=== PATIENT | female | born 1955 | race Caucasian/White ===

== ENCOUNTER 2017-02-10 12:43 | Emergency (ER) | payer MEDICAID ==
[~2017-02-10] VITALS: Ht 157.5 cm; Wt 93.9 kg
[~2017-02-10 12:43] MED LIST: ALBU2.5V5 IH; ALBU8.5H6 IH; CELE50CA PO; CYCL5TAB PO; DULO20CA PO; ESOM20CA PO; ESTR1TAB PO; HYDR-2666 PO; HYDR200T5 PO; SERT25TA PO
[2017-02-10 12:45] VITALS: BP 143/79
[2017-02-10] MEDS ORDERED: KETOROLAC TROMETHAMINE 60 MG/2 ML SYRINGE. IM ONE (13:30)
[2017-02-10] MEDS ORDERED: HYDROCODONE/APAP 5/325MG TABLET. PO ONE (13:30)
[2017-02-10] MEDS ORDERED: CYCLOBENZAPRINE 10 MG TABLET. PO ONE (13:30)
--- NOTE | 2017-02-10 14:00 | RAD ---
Pelvis with right hip, 3 views, 02/10/2017: History: Fall, pain The bony structures are demineralized. No acute fracture or dislocation is identified. The hip joints are well-maintained with only mild marginal spurring. IMPRESSION: No acute bony abnormality is detected.
--- NOTE | 2017-02-10 14:05 | RAD ---
Lumbar spine, 3 views, 02/10/2017: History: Fall, pain There is a minimal lumbar scoliosis. There is a mild compression deformity involving the superior endplate at L2. This was not visible on a lateral chest radiograph from 11/18/2013. A fracture line is visible anteriorly. The fracture is probably recent. The other lumbar vertebral heights are well-maintained. There are mild scattered marginal spurs. There is mild disc space narrowing at L4-5. There are moderate degenerative changes involving the facet joints in the lower lumbar spine with a grade 1 spondylolisthesis at L4-5. There is a moderate amount stool throughout the colon. IMPRESSION: 1. Mild L2 vertebral compression deformity which is probably recent. 2. Moderate facet joint arthropathy with an associated grade 1 spondylolisthesis at L4-5.
[2017-02-10] MEDS ORDERED: CYCL10TA2 PO (14:28)
--- NOTE | 2017-02-10 14:28 | PHYS DOC ---
Past Medical History Past Medical History: Anemia, Anxiety, Arthritis, Bronchitis, CHF, Depression, DVT Additional Past Medical Histor: lupus,fibromyalgia Past Surgical History: Knee Replacement Additional Past Surgical Histo: left shoulder, carpel tunnel Alcohol Use: None Drug Use: None Adult General Chief Complaint Chief Complaint: BACK INJURY HPI HPI Patient is a 61 year old female with history of anemia anxiety bronchitis who presents today with mild bilateral lower back pain and right hip pain after tripping on her wheelchair and falling down on her buttocks. Patient denies any loss of consciousness. She is up and ambulating in the ED. Review of Systems Review of Systems Constitutional: Denies fever or chills [] Eyes: Denies change in visual acuity, redness, or eye pain [] HENT: Denies nasal congestion or sore throat [] Respiratory: Denies cough or shortness of breath [] Cardiovascular: No additional information not addressed in HPI [] GI: Denies abdominal pain, nausea, vomiting, bloody stools or diarrhea [] : Denies dysuria or hematuria [] Musculoskeletal: Low back pain and right hip pain Integument: Denies rash or skin lesions [] Neurologic: Denies headache, focal weakness or sensory changes [] Endocrine: Denies polyuria or polydipsia [] Current Medications Current Medications Current Medications Medications (Trade) Dose Ordered Sig/Milena Start Time Stop Time Status Last Admin Dose Admin Acetaminophen/ Hydrocodone Bitart (Lortab 5/325) 1 tab 1X ONCE 02/10/17 13:30 02/10/17 13:30 DC Cyclobenzaprine HCl (Flexeril) 10 mg 1X ONCE 02/10/17 13:30 02/10/17 13:30 DC Ketorolac Tromethamine (Toradol Im) 60 mg 1X ONCE 02/10/17 13:30 02/10/17 13:32 DC 02/10/17 13:36 60 MG Allergies Allergies Allergies Coded Allergies Type Severity Reaction Last Updated Verified Sulfa (Sulfonamide Antibiotics) Allergy Unknown Anaphylaxis 10/07/14 Yes Physical Exam Physical Exam Constitutional: Well developed, well nourished, no acute distress, non-toxic appearance. [] HENT: Normocephalic, atraumatic, bilateral external ears normal, oropharynx moist, no oral exudates, nose normal. [] Eyes: PERRLA, EOMI, conjunctiva normal, no discharge. [] Neck: Normal range of motion, no tenderness, supple, no stridor. [] Cardiovascular:Heart rate regular rhythm, no murmur [] Lungs & Thorax: Bilateral breath sounds clear to auscultation [] Abdomen: Bowel sounds normal, soft, no tenderness, no masses, no pulsatile masses. [] Skin: Warm, dry, no erythema, no rash. [] Back: Overweight patient. Diffuse paraspinal muscle tenderness to bilateral low lumbar region, no midline tenderness, no CVA tenderness. [] Extremities: Hip exam is difficult due to weight. Tenderness on palpation of the right lateral hip. +2 right pedal pulse. Cap refill less than 2 seconds the right lower extremity. Neurologic: Alert and oriented X 3, normal motor function, normal sensory function, no focal deficits noted. [] Psychologic: Affect normal, judgement normal, mood normal. [] Current Patient Data Vital Signs Vital Signs Date Time Temp Pulse Resp B/P Pulse Ox O2 Delivery O2 Flow Rate FiO2 02/10/17 12:45 97.6 53 18 98 Room Air 97.6 EKG EKG [] Radiology/Procedures Radiology/Procedures [] Course & Med Decision Making Course & Med Decision Making Pertinent Labs and Imaging studies reviewed. (See chart for details) Patient is in the ED with low back pain and right hip pain after falling. X- rays of the lumbar spine and right hip with pelvic are negative for any acute findings. Discharged with Flexeril. Heat recommended to the region. Follow-up with PCP in one week. Provided return precautions and discharged in stable condition. Dragon Disclaimer Dragon Disclaimer This electronic medical record was generated, in whole or in part, using a voice recognition dictation system. Departure Departure Impression: Primary Impression: Lumbar contusion Additional Impressions: Contusion, hip Fall from standing Disposition: HOME, SELF-CARE Condition: STABLE Referrals: RAMIRO ROACH (PCP) Follow-up with your own doctor in 1-2 weeks Patient Instructions: Back Pain, Adult Additional Instructions: You were seen for hip and back pain after falling. You probably have contusions to the area. Your x-rays are negative for any acute findings. Apply heat to the affected areas. Follow-up with your own doctor in 1-2 weeks. Come back to the ED at any point symptoms worsen. Scripts Cyclobenzaprine Hcl 10 Mg Tablet1 Tab PO TID #30 TAB Prov:ADALGISA OLMSTEAD MARVEL 02/10/17 Problem Qualifiers Primary Impression: Lumbar contusion Encounter type: initial encounter Qualified Code: S30.0XXA - Contusion of lower back and pelvis, initial encounter Additional Impressions: Contusion, hip Encounter type: initial encounter Laterality: right Qualified Code: S70.01XA - Contusion of right hip, initial encounter Fall from standing Encounter type: initial encounter Qualified Code: W19.XXXA - Unspecified fall, initial encounter JOJOADALGISA RYAN MARVEL Feb 10, 2017 14:28
== END 2017-02-10 14:32 | disposition home or self-care (01) ==
LOC: ER 12:43
DX: S30.0XXA Contusion of lower back and pelvis, initial encounter (principal); S70.01XA Contusion of right hip, initial encounter; F32.9 Major depressive disorder, single episode, unspecified; F41.9 Anxiety disorder, unspecified; I11.0 Hypertensive heart disease with heart failure; I50.9 Heart failure, unspecified; M79.7 Fibromyalgia; M19.90 Unspecified osteoarthritis, unspecified site; Z86.718 Personal history of other venous thrombosis and embolism; Z96.659 Presence of unspecified artificial knee joint; Z88.2 Allergy status to sulfonamides; W05.0XXA Fall from non-moving wheelchair, initial encounter; Y93.89 Activity, other specified; Y92.89 Other specified places as the place of occurrence of the external cause; Y99.8 Other external cause status
CPT/HCPCS: 72100; 73502; 96372; 99284; J1885

== ENCOUNTER 2017-02-16 14:30 | Emergency (ER) | payer MEDICAID ==
[~2017-02-16] VITALS: Ht 157.5 cm; Wt 97.1 kg
[~2017-02-16 14:30] MED LIST changes: +CYCL10TA2 PO
[2017-02-16 14:53] VITALS: BP 163/70
[2017-02-16] MEDS ORDERED: ONDANSETRON ODT 4 MG TAB.RAPDIS PO ONE (15:45)
[2017-02-16] MEDS ORDERED: MORPHINE SULFATE 10 MG/ML VIAL. IM ONE (15:45)
[2017-02-16] MEDS ORDERED: LIDOCAINE 1%/EPI 1:100,000 20 ML VIAL. INJ ONE (15:45)
--- NOTE | 2017-02-16 15:47 | PHYS DOC ---
Past Medical History Past Medical History: Anemia, Anxiety, Arthritis, Bronchitis, CHF, Depression, DVT Additional Past Medical Histor: lupus,fibromyalgia Past Surgical History: Knee Replacement Additional Past Surgical Histo: left shoulder, carpel tunnel Additional Information: nonsmoker Alcohol Use: None Drug Use: None Adult General Chief Complaint Chief Complaint: MECHANICAL FALL HPI HPI Patient is a 61 year old female who presents with left knee laceration after mechanical fall at 1400 today. 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 She landed on the left knee and hit the left elbow as well. She denies hitting her head or loss of consciousness. She denies weakness, numbness, or pain in her neck. She has been able to bear weight but has not tried ambulating. She stood to transfer into an ambulance for transport to the emergency department. Her tetanus immunization is up to date. Her PCP is Dr. Zoraida Roach. Review of Systems Review of Systems Constitutional: Denies fever or chills. [] Eyes: Denies change in visual acuity, redness, or eye pain. [] Musculoskeletal: Denies back pain. Reports left knee and left elbow pain. Integument: Denies rash or skin lesions. Reports left knee laceration. Neurologic: Denies headache, focal weakness or sensory changes. Denies loss of consciousness. All systems reviewed and negative unless otherwise stated in the HPI. Current Medications Current Medications Current Medications Medications (Trade) Dose Ordered Sig/Milena Start Time Stop Time Status Last Admin Dose Admin Lidocaine/ Epinephrine (Xylocaine 1%-Epi 1:100,000) 20 ml 1X ONCE 02/16/17 15:45 02/16/17 15:46 DC 02/16/17 15:59 20 ML Morphine Sulfate 5 mg 1X ONCE 02/16/17 15:45 02/16/17 15:46 DC 02/16/17 15:59 5 MG Ondansetron HCl (Zofran Odt) 4 mg 1X ONCE 02/16/17 15:45 02/16/17 15:46 DC 02/16/17 15:58 4 MG Allergies Allergies Allergies Coded Allergies Type Severity Reaction Last Updated Verified Sulfa (Sulfonamide Antibiotics) Allergy Unknown Anaphylaxis 10/07/14 Yes Physical Exam Physical Exam Constitutional: Well developed, well nourished, no acute distress, non-toxic appearance. [] HENT: Normocephalic, atraumatic, oropharynx moist. [] Eyes: PERRLA, EOMI, conjunctiva normal, no discharge. [] Neck: Normal range of motion, no tenderness, supple, no stridor. [] Skin: Warm, dry, no erythema, no rash. There is a 4cm laceration across the left knee without active bleeding. There is ecchymosis of the left knee. There is no ecchymosis, abrasion, or laceration of the left elbow. Extremities: Left knee diffuse tenderness, ROM decreased due to pain, moderate edema. 2+ pedal pulses. Less than 2 second capillary refill distally. Light touch sensation intact distally. There is no tenderness of the hip, thigh, calf , ankle, or foot. Extremities 2: Left elbow medial tenderness, ROM intact, no edema. 2+ radial and ulnar pulses. Less than 2 second capillary refill in the fingers. Light touch sensation intact distally. There is no tenderness of the shoulder, arm, wrist, forearm, or hand. Neurologic: Alert and oriented X 3, normal motor function, normal sensory function, no focal deficits noted. [] Psychologic: Affect normal, judgement normal, mood normal. [] Current Patient Data Vital Signs Vital Signs Date Time Temp Pulse Resp B/P Pulse Ox O2 Delivery O2 Flow Rate FiO2 02/16/17 15:59 Room Air 02/16/17 14:53 98.2 56 16 163/70 98.2 EKG EKG [] Radiology/Procedures Radiology/Procedures REASON: trip & fall on knee & elbow PROCEDURE: KNEE LEFT 3V Indication fall, pain. AP oblique and lateral views of the left knee were obtained. There is some mild degenerative change seen involving the knee. There is slight medial joint space compartment narrowing and more advanced patellofemoral narrowing. Abrasion and/or puncture wound associated with the soft tissues is suggested. Air is suggested at the level of the knee just medial to the medial joint space compartment and medial to the proximal tibia REASON: trip & fall on knee & elbow PROCEDURE: ELBOW LEFT 3V Indication fall. Pain. AP oblique and lateral views of the left elbow were obtained. No bony abnormality is seen. Significant joint fluid is not suggested Course & Med Decision Making Course & Med Decision Making Pertinent Labs and Imaging studies reviewed. (See chart for details) Patient presents with a 4 cm superficial laceration to the left knee inferior to the patella and medial to the patellar tendon. The wound was anesthetized with 1% lidocaine with epinephrine. The wound was explored for foreign bodies and none were identified. There was no tendon laceration. The bursa appeared to be intact. The wound was cleaned using chlorhexidine scrub and copiously irrigated using normal saline. Wound edges were well approximated using 7 simple interrupted sutures using 4-0 nylon. The patient tolerated the procedure well and bleeding was controlled. A sterile dressing was applied. X-ray does not show any acute fracture or dislocation. There is a suggestion of air within the joint. This was discussed with Dr. Nicholson. Orthopedics was consulted. Dr. Flynn recommends a saline load test. This involves injecting approximately 100 mL of saline into the joint space. If there is leakage of the fluid through the laceration, this confirms involvement of the joint with the laceration. Saline load test was performed by Dr. Nicholson. Please see procedure note. There was no leakage of fluid. The injected saline was unable to be aspirated out of the joint after negative saline load test. Nonstick dressing was applied to the laceration with Kerlix and then an Jose wrap. I contacted Dr. Flynn's PA. She states that as long as the patient tolerated the procedure well and is not in severe pain, it is okay to discharge her home. She recommends an Jose wrap to apply pressure and antibiotics. They are happy to see the patient in their office as an outpatient. The patient prefers to see her orthopedist at [facility]. The patient is discharged home with prescriptions for Keflex and Percocet. She is instructed to follow closely with orthopedics, either with her orthopedist at [facility] or with Dr. Flynn. She has already called her orthopedist to schedule an appointment in the morning. Return precautions were discussed. Patient verbalizes understanding and agrees with plan. Dragon Disclaimer Dragon Disclaimer This electronic medical record was generated, in whole or in part, using a voice recognition dictation system. Departure Departure Impression: Primary Impression: Knee laceration Additional Impression: Elbow contusion Disposition: HOME, SELF-CARE Condition: IMPROVED Referrals: ZORAIDA [facility] (PCP) HOUSTON FLYNN MD Patient Instructions: Elbow Contusion, [id number], Knee Wraps (Elastic Bandage) and RICE, Sutured Wound Care, [id number] Additional Instructions: Your x-rays did not show any broken bones or dislocations. There was some air seen, however after injection of saline into the knee joint, it does not appear that the joint space was compromised by the knee laceration. Please keep the wound covered with antibiotic ointment and a bandage. Wear an Jose wrap over the bandage to help with swelling. Please complete all of the prescribed antibiotics. Please take the prescribed pain medication as directed. Do not drive or operate heavy machinery while taking pain medication. Please follow-up with the orthopedic doctor listed below or the orthopedic doctor of your choice within the next 1-2 days. Return to the emergency department if you have redness, warmth, yellow/green drainage from the wound, or other new or concerning symptoms. Scripts Oxycodone/Apap 5-325 (Percocet 5-325 Mg Tablet)1 Each Tablet1 Tab PO PRN Q6HRS PRN PAIN #20 TAB Prov:ANIYA MORRISSEY 02/16/17 Cephalexin (Keflex)500 Mg Capsule1 Cap PO BID #14 CAP Prov:ANIYA MORRISSEY 02/16/17 Arthrocentesis Indication: saline load test for joint involvement in laceration Consent: Consent given by patient. Procedure: Procedure was performed by Dr. Nicholson. The left knee was positioned appropriately and the landmarks were identified. Local anesthesia was 1% lidocaine with epinephrine. The area was then prepped and draped in the usual sterile fashion. A needle was then introduced into the joint space with 100cc of sterile saline injected. There was minimal leakage of fluid from the wound, thus confirming that there is no joint involvement of the laceration. Attempt to aspirate the injected fluid back out of the joint was unsuccessful. A sterile dressing was then applied to the site. An Jose wrap was the applied over the dressing to apply pressure. The patient tolerated the procedure well. Complications: unable to aspirate saline after injection. Problem Qualifiers Primary Impression: Knee laceration Encounter type: initial encounter Laterality: left Qualified Code: S81.012A - Laceration without foreign body, left knee, initial encounter Additional Impression: Elbow contusion Encounter type: initial encounter Laterality: left Qualified Code: S50.02XA - Contusion of left elbow, initial encounter ANIYA MORRISSEY Feb 16, 2017 15:47
--- NOTE | 2017-02-16 16:05 | RAD ---
Indication fall. Pain. AP oblique and lateral views of the left elbow were obtained. No bony abnormality is seen. Significant joint fluid is not suggested
--- NOTE | 2017-02-16 16:07 | RAD ---
Indication fall, pain. AP oblique and lateral views of the left knee were obtained. There is some mild degenerative change seen involving the knee. There is slight medial joint space compartment narrowing and more advanced patellofemoral narrowing. Abrasion and/or puncture wound associated with the soft tissues is suggested. Air is suggested at the level of the knee just medial to the medial joint space compartment and medial to the proximal tibia
[2017-02-16] MEDS ORDERED: CEPH-264 PO (18:42)
[2017-02-16] MEDS ORDERED: OXYC-323 PO (18:42)
== END 2017-02-16 18:46 | disposition home or self-care (01) ==
LOC: ER 14:30
DX: S81.012A Laceration without foreign body, left knee, initial encounter (principal); S50.02XA Contusion of left elbow, initial encounter; I11.0 Hypertensive heart disease with heart failure; I50.9 Heart failure, unspecified; F41.9 Anxiety disorder, unspecified; F32.9 Major depressive disorder, single episode, unspecified; M79.7 Fibromyalgia; M19.90 Unspecified osteoarthritis, unspecified site; Z88.2 Allergy status to sulfonamides; Z96.659 Presence of unspecified artificial knee joint; Z86.718 Personal history of other venous thrombosis and embolism; W01.0XXA Fall on same level from slipping, tripping and stumbling without subsequent striking against object, initial encounter; Y93.89 Activity, other specified; Y92.89 Other specified places as the place of occurrence of the external cause; Y99.8 Other external cause status
CPT/HCPCS: 12002; 73080; 73562; 96372; 99284; J2270; J3490; Q0162

== ENCOUNTER 2019-11-12 14:58 | Emergency (ER) | payer MEDICARE, OTHER ==
[~2019-11-12] VITALS: Ht 157.5 cm; Wt 105.2 kg
[~2019-11-12 14:58] MED LIST changes: +CEPH-264 PO; -HYDR-2666 PO; +HYDR-2761 PO; +OXYC1TAB15 PO
[2019-11-12] MEDS: methylPREDNISolone SOD SUCC PF 125 MG/2 ML VIAL. IV ONE (15:30)
--- NOTE | 2019-11-12 15:32 | EKG ---
[facility] [address] [place] [address] Test Date: 2019-11-12 Test Time: 15:12:58 Pat Name: CALVIN SU Department: Room: Gender: F [employer]: : 1955 Requested By: CAROLE CASTRO Order Number: [id number] Reading MD: Measurements Intervals [place] Rate: 63 P: WI: QRS: 19 QRSD: 106 T: 14 QT: 468 QTc: 482 Interpretive Statements ATRIAL FLUTTER QRS(T) CONTOUR ABNORMALITY CONSISTENT WITH INFERIOR INFARCT PROBABLY OLD ABNORMAL ECG RI6.01 No previous ECG available for comparison
--- NOTE | 2019-11-12 15:51 | RAD ---
PORTABLE CHEST 1V Clinical indications: Shortness of breath COMPARISON: January 08, 2016. Findings: Decreased inspiration is evident. No acute lung infiltrate or pleural effusion or pulmonary edema or lung mass or pneumothorax is seen. The heart size is enlarged but stable. The pulmonary vasculature, mediastinum and both tammy are unremarkable. Impression: Mild stable cardiomegaly. Decreased inspiration which may be related to the patient's larger body habitus. No acute lung infiltrate. Electronically signed by: Steven Lin MD (11/12/2019 3:48 PM) [facility]
[2019-11-12] MEDS: IPRATRPIUM/ALBUTEROL 0.5/2.5MG 3 ML NEBU. NEB ONE (16:00)
--- NOTE | 2019-11-12 16:00 | PHYS DOC ---
Past Medical History Past Medical History: Anemia, Anxiety, Arthritis, Bronchitis, CHF, Depression, DVT Additional Past Medical Histor: lupus,fibromyalgia Past Surgical History: Knee Replacement Additional Past Surgical Histo: left shoulder, carpel tunnel Alcohol Use: None Drug Use: None Adult General Chief Complaint Chief Complaint: SHORTNESS OF BREATH [facility] HPI Patient is a 63 year old female patient with history of anxiety, arthritis, CHF, bronchitis, COPD, fibromyalgia and lupus who presents with complaining of shortness of breath. Patient complaining of exertional shortness of breath for the last 3-4 days with productive cough and yellow sputum and chills associated with nausea and few episodes of diarrhea without fever, chest pain, sick contact, vomiting, urinary symptom. Patient states she took a home inhalers without improvement of her condition and decided to come to hospital because she had episodes of previous episodes of shortness of breath and hospitalization. Patient had O2 sat of 97% at room air at arrival to ER. Review of Systems Review of Systems Constitutional: Denies fever or chills [] Eyes: Denies change in visual acuity, redness, or eye pain [] HENT: Denies nasal congestion or sore throat [] Respiratory: Reports cough and shortness of breath Cardiovascular: No additional information not addressed in HPI [] GI: Denies abdominal pain,vomiting, bloody stools , reports nausea and diarrhea [] : Denies dysuria or hematuria [] Musculoskeletal: Denies back pain or joint pain [] Integument: Denies rash or skin lesions [] Neurologic: Denies headache, focal weakness or sensory changes [] Endocrine: Denies polyuria or polydipsia [] All other systems were reviewed and found to be within normal limits, except as documented in this note. Current Medications Current Medications Current Medications Medications (Trade) Dose Ordered Sig/Milena Start Time Stop Time Status Last Admin Dose Admin Albuterol/ Ipratropium (Duoneb) 3 ml 1X ONCE 11/12/19 15:30 11/12/19 15:33 DC 11/12/19 16:00 3 ML Methylprednisolone Sodium Succinate (SOLU-Medrol 125MG VIAL) 125 mg 1X ONCE 11/12/19 15:30 11/12/19 15:33 DC 11/12/19 15:30 125 MG Allergies Allergies Allergies Coded Allergies Type Severity Reaction Last Updated Verified Sulfa (Sulfonamide Antibiotics) Allergy Unknown Anaphylaxis 10/07/14 Yes Physical Exam Physical Exam Constitutional: Well developed, well nourished, mild distress, non-toxic appearance, morbidly obese. [] HENT: Normocephalic, atraumatic, bilateral external ears normal, oropharynx moist, no oral exudates, nose normal. [] Eyes: PERRLA, EOMI, conjunctiva normal, no discharge. [] Neck: Normal range of motion, no tenderness, supple, no stridor. [] Cardiovascular:Heart rate regular rhythm, no murmur [] Lungs & Thorax: Bilateral breath sounds clear to auscultation [] Abdomen: Bowel sounds normal, soft, no tenderness, no masses, no pulsatile masses. [] Skin: Warm, dry, no erythema, no rash. [] Back: No tenderness, no CVA tenderness. [] Extremities: No tenderness, no cyanosis, no clubbing, ROM intact, no edema. [] Neurologic: Alert and oriented X 3, normal motor function, normal sensory function, no focal deficits noted. [] Psychologic: Affect normal, judgement normal, mood normal. [] Current Patient Data Vital Signs Vital Signs Date Time Temp Pulse Resp B/P (MAP) Pulse Ox O2 Delivery O2 Flow Rate FiO2 11/12/19 17:30 60 18 110/53 (72) 97 Room Air 11/12/19 15:09 98.4 98.4 Lab Values Laboratory Tests Test 11/12/19 15:21 11/12/19 16:00 Influenza Type A Antigen Negative (NEGATIVE) Influenza Type B Antigen Negative (NEGATIVE) White Blood Count 5.7 x10^3/uL (4.0-11.0) Red Blood Count 3.76 x10^6/uL (3.50-5.40) Hemoglobin 11.0 g/dL (12.0-15.5) L Hematocrit 33.7 % (36.0-47.0) L Mean Corpuscular Volume 90 fL (79-100) Mean Corpuscular Hemoglobin 29 pg (25-35) Mean Corpuscular Hemoglobin Concent 33 g/dL (31-37) Red Cell Distribution Width 15.1 % (11.5-14.5) H Platelet Count 163 x10^3/uL (140-400) Neutrophils (%) (Auto) 64 % (31-73) Lymphocytes (%) (Auto) 23 % (24-48) L Monocytes (%) (Auto) 9 % (0-9) Eosinophils (%) (Auto) 4 % (0-3) H Basophils (%) (Auto) 1 % (0-3) Neutrophils # (Auto) 3.7 x10^3/uL (1.8-7.7) Lymphocytes # (Auto) 1.3 x10^3/uL (1.0-4.8) Monocytes # (Auto) 0.5 x10^3/uL (0.0-1.1) Eosinophils # (Auto) 0.2 x10^3/uL (0.0-0.7) Basophils # (Auto) 0.0 x10^3/uL (0.0-0.2) D-Dimer (Raven) 0.56 ug/mlFEU (0.00-0.50) H Sodium Level 144 mmol/L (136-145) Potassium Level 4.3 mmol/L (3.5-5.1) Chloride Level 105 mmol/L (98-107) Carbon Dioxide Level 30 mmol/L (21-32) Anion Gap 9 (6-14) Blood Urea Nitrogen 25 mg/dL (7-20) H Creatinine 1.8 mg/dL (0.6-1.0) H Estimated GFR (Cockcroft-Gault) 28.4 BUN/Creatinine Ratio 14 (6-20) Glucose Level 89 mg/dL (70-99) Lactic Acid Level 1.1 mmol/L (0.4-2.0) Calcium Level 8.9 mg/dL (8.5-10.1) Total Bilirubin 0.5 mg/dL (0.2-1.0) Aspartate Amino Transferase (AST) 22 U/L (15-37) Alanine Aminotransferase (ALT) 19 U/L (14-59) Alkaline Phosphatase 164 U/L (46-116) H Creatine Kinase 147 U/L (26-192) Troponin I Quantitative 0.073 ng/mL (0.000-0.055) ZD-Xnb-N-Type Natriuretic Peptide 2433 pg/mL (0-124) H Total Protein 6.9 g/dL (6.4-8.2) Albumin 3.6 g/dL (3.4-5.0) Albumin/Globulin Ratio 1.1 (1.0-1.7) Laboratory Tests 11/12/19 16:00 Laboratory Tests 11/12/19 16:00 EKG EKG EKG interpreted by me. EKG at 1512 showed sinus rhythm at rate of 63, poor R- wave progress in anteroseptal leads, no acute ST and T-wave elevation. Radiology/Procedures Radiology/Procedures [][facility] [address] [place] [address] IMAGING REPORT Signed PATIENT: CALVIN SU LACCOUNT: [id number] : 1955 LOCATION: ER AGE: 63 SEX: F EXAM STATUS: PRE ER ORD. PHYSICIAN: CAROLE CASTRO MD REASON: shortness of breath PROCEDURE: PORTABLE CHEST 1V PORTABLE CHEST 1V Clinical indications: Shortness of breath COMPARISON: January 08, 2016. Findings: Decreased inspiration is evident. No acute lung infiltrate or pleural effusion or pulmonary edema or lung mass or pneumothorax is seen. The heart size is enlarged but stable. The pulmonary vasculature, mediastinum and both tammy are unremarkable. Impression: Mild stable cardiomegaly. Decreased inspiration which may be related to the patient's larger body habitus. No acute lung infiltrate. Electronically signed by: Oswaldo Lin MD (11/12/2019 3:48 PM) [facility] DICTATED and SIGNED BY: OSWALDO LIN MD DATE: 11/12/19 1548 Course & Med Decision Making Course & Med Decision Making Pertinent Labs and Imaging studies reviewed. (See chart for details) Evaluation of patient is a 62-year-old female patient with complaining of shortness of breath and cough. Patient had stable vital signs of complaining of chest pain. Patient had mild elevation of troponin and BNP. Patient refuses hospitalization for more evaluation of elevation of troponin and signed AMA. Sofya Disclaimer Dragon Disclaimer This electronic medical record was generated, in whole or in part, using a voice recognition dictation system. Departure Departure Impression: Primary Impression: COPD exacerbation Additional Impressions: Elevated troponin Elevated brain natriuretic peptide (BNP) level Noncompliance by refusing service Chronic anemia Renal insufficiency Disposition: 07 AGAINST MEDICAL ADVICE (at 1726) Condition: IMPROVED Referrals: RAMIRO ROACH (PCP) Patient Instructions: Chronic Obstructive Pulmonary Disease Exacerbation, Heart Failure Additional Instructions: Continue her home medication Follow-up with your primary care physician in 2-3 days Return to ER if not getting better Scripts Azithromycin (ZITHROMAX) 250 Mg Tablet 250 MG PO as directed for ANTI-BIOTIC, #6 TAB 0 Refills Take 2 PO x 1 days Then take 1 PO q 24 hour for the next 4 days Prov: CAROLE CASTRO MD 11/12/19 Benzonatate (TESSALON PERLE) 100 Mg Capsule 1 CAP PO TID for cough, #21 CAP Prov: CAROLE CASTRO MD 11/12/19 Methylprednisolone (MEDROL) 4 Mg Tab.ds.pk 1 PKG PO UD for inflammation, #1 PKG Prov: CAROLE CASTRO MD 11/12/19 Problem Qualifiers CAROLE CASTRO MD Nov 12, 2019 16:00
[2019-11-12 16:14] LABS: INFLUENZA A PATIENT NEGATIVE (NEGATIVE); INFLUENZA B PATIENT NEGATIVE (NEGATIVE)
[2019-11-12 16:31] LABS: BASO % 1 % (0-3); EOS # 0.2 x10^3/uL (0.0-0.7); EOS % 4 % (0-3); HEMATOCRIT 33.7 % (36.0-47.0); LYMPH # 1.3 x10^3/uL (1.0-4.8); LYMPH % 23 % (24-48); MEAN CORPUSCULAR HEMOGLOBIN 29 pg (25-35); MEAN CORPUSCULAR HGB CONC 33 g/dL (31-37); MEAN CORPUSCULAR VOLUME 90 fL (79-100); MONO # 0.5 x10^3/uL (0.0-1.1); MONO % 9 % (0-9); NEUT # 3.7 x10^3/uL (1.8-7.7); NEUT % 64 % (31-73); PLATELET COUNT 163 x10^3/uL (140-400); RED BLOOD COUNT 3.76 x10^6/uL (3.50-5.40); RED CELL DISTRIBUTION WIDTH 15.1 % (11.5-14.5); WHITE BLOOD COUNT 5.7 x10^3/uL (4.0-11.0)
[2019-11-12 16:48] LABS: CALCIUM 8.9 mg/dL (8.5-10.1); CREATININE 1.8 mg/dL (0.6-1.0); GFR 28.4; POTASSIUM 4.3 mmol/L (3.5-5.1)
[2019-11-12 16:55] LABS: ALBUMIN 3.6 g/dL (3.4-5.0); TOTAL PROTEIN 6.9 g/dL (6.4-8.2)
[2019-11-12 16:56] LABS: ALBUMIN/GLOBULIN RATIO 1.1 (1.0-1.7); TOTAL BILIRUBIN 0.5 mg/dL (0.2-1.0)
[2019-11-12] MEDS ORDERED: AZIT250T PO ×2 (17:29→17:50)
[2019-11-12] MEDS ORDERED: METH4TAB2 PO ×2 (17:29→17:50)
[2019-11-12] MEDS ORDERED: BENZ100C PO ×2 (17:29→17:50)
[2019-11-12 17:30] VITALS: BP 110/53
== END 2019-11-12 17:37 | disposition left against medical advice (07) ==
LOC: ER 14:58
DX: J44.1 Chronic obstructive pulmonary disease with (acute) exacerbation (principal); R79.89 Other specified abnormal findings of blood chemistry; D64.9 Anemia, unspecified; N28.9 Disorder of kidney and ureter, unspecified; Z91.19 Patient's noncompliance with other medical treatment and regimen; Z86.718 Personal history of other venous thrombosis and embolism; Z86.79 Personal history of other diseases of the circulatory system; Z88.2 Allergy status to sulfonamides
CPT/HCPCS: 36415; 71045; 80053; 82550; 83605; 83880; 84484; 85025; 85379; 87040; 87804; 93005; 94640; 96374; 99285; J2930; J7620

== ENCOUNTER 2020-03-25 07:03 | Emergency (ER) | payer MEDICARE ==
[~2020-03-25] VITALS: Ht 210.8 cm; Wt 107.0 kg
[~2020-03-25 07:03] MED LIST changes: +AZIT250T PO; +BENZ100C PO; +METH4TAB2 PO
[2020-03-25 07:15] VITALS: BP 117/56
[2020-03-25] MEDS ORDERED: PRAM0.255 PO (07:48)
--- NOTE | 2020-03-25 07:48 | PHYS DOC ---
Past Medical History Past Medical History: Anemia, Anxiety, Arthritis, Bronchitis, CHF, Depression, DVT Additional Past Medical Histor: lupus,fibromyalgia Past Surgical History: Knee Replacement Additional Past Surgical Histo: left shoulder, carpel tunnel, RT KNEE REPLACEMENT Smoking Status: Never Smoker Alcohol Use: None Drug Use: None General Adult EDM: Chief Complaint: MULTIPLE COMPLAINTS HPI: HPI: Patient is a 64-year-old female who presents with what sounds like restless leg syndrome. She has been out of her medication and did not have a very restful night last night. She is wondering if we can give her a prescription for this. She is also complained of some sinus congestion that she has had for a few days. She states she is on the downhill side of that. She denies any fever chills or sweats. She has had a little bit of a cough but no shortness of breath. [] Review of Systems: Review of Systems: Constitutional: Denies fever or chills. [] Eyes: Denies change in visual acuity. [] HENT: Denies nasal congestion or sore throat. [] Respiratory: Denies cough or shortness of breath. [] Cardiovascular: Denies chest pain or edema. [] GI: Denies abdominal pain, nausea, vomiting, bloody stools or diarrhea. [] : Denies dysuria. [] Musculoskeletal: Reports restless leg [] Integument: Denies rash. [] Neurologic: Denies headache, focal weakness or sensory changes. [] Endocrine: Denies polyuria or polydipsia. [] Lymphatic: Denies swollen glands. [] Psychiatric: Reports anxiety [] Heart Score: Risk Factors: Risk Factors: DM, Current or recent (<one month) smoker, HTN, HLP, family history of CAD, obesity. Risk Scores: Score 0 - 3: 2.5% MACE over next 6 weeks - Discharge Home Score 4 - 6: 20.3% MACE over next 6 weeks - Admit for Clinical Observation Score 7 - 10: 72.7% MACE over next 6 weeks - Early Invasive Strategies Current Medications: Current Medications Medications (Trade) Dose Ordered Sig/Milena Start Time Stop Time Status Last Admin Dose Admin Alprazolam (Xanax) 0.5 mg 1X ONCE 03/25/20 08:15 03/25/20 08:16 Allergies: Allergies: Allergies Coded Allergies Type Severity Reaction Last Updated Verified Sulfa (Sulfonamide Antibiotics) Allergy Unknown Anaphylaxis 10/07/14 Yes Physical Exam: PE: Constitutional: Well developed, well nourished, mild distress, non-toxic appearance. [] HENT: Normocephalic, atraumatic, bilateral external ears normal, oropharynx moist, no oral exudates, nose normal. [] Eyes: PERRLA, EOMI, conjunctiva normal, no discharge. [] Neck: Normal range of motion, no tenderness, supple, no stridor. [] Cardiovascular:Heart rate regular rhythm, no murmur [] Lungs & Thorax: Bilateral breath sounds clear to auscultation [] Abdomen: Bowel sounds normal, soft, no tenderness, no masses, no pulsatile masses. [] Skin: Warm, dry, no erythema, no rash. [] Back: No tenderness, no CVA tenderness. [] Extremities: No tenderness, no cyanosis, no clubbing, ROM intact, no edema. [] Neurologic: Alert and oriented X 3, normal motor function, normal sensory function, no focal deficits noted. [] Psychologic: Extremely anxious. [] Current Patient Data: Vital Signs: Vital Signs Date Time Temp Pulse Resp B/P (MAP) Pulse Ox O2 Delivery O2 Flow Rate FiO2 03/25/20 07:15 98.7 69 20 117/56 (76) 97 Room Air 98.7 EKG: EKG: [] Radiology/Procedures: Radiology/Procedures: [] Course & Med Decision Making: Course & Med Decision Making Pertinent Labs and Imaging studies reviewed. (See chart for details) [ED course: Evaluation reveals a very anxious 64-year-old female who is in no ac bryan distress. She is been out of her medicine for restless legs. We will give her 0.5 alprazolam during her stay in the department to help calm her down] Sofya Disclaimer: Sofya Disclaimer: This electronic medical record was generated, in whole or in part, using a voice recognition dictation system. Departure Departure Impression: Primary Impression: Restless legs syndrome Disposition: 01 HOME, SELF-CARE Condition: STABLE Referrals: LEONOR EDWARDS DO (PCP) Patient Instructions: Restless Legs Syndrome Scripts Pramipexole Di-Hcl (MIRAPEX) 0.25 Mg Tablet 0.5 TAB PO QHS for restless legs, #60 TAB 1 Refill Prov: JENNIFER JOSE DO 03/25/20 JENNIFER JOSE DO Mar 25, 2020 07:48
[2020-03-25] MEDS ORDERED: ALPRAZolam 0.5 MG TABLET PO ONE (08:15)
== END 2020-03-25 07:50 | disposition home or self-care (01) ==
LOC: ER 07:28
DX: G25.81 Restless legs syndrome (principal); R05 Cough; R09.81 Nasal congestion; F41.9 Anxiety disorder, unspecified; M19.90 Unspecified osteoarthritis, unspecified site; F32.9 Major depressive disorder, single episode, unspecified; I50.9 Heart failure, unspecified; M79.7 Fibromyalgia; Z86.718 Personal history of other venous thrombosis and embolism; Z98.890 Other specified postprocedural states; Z88.2 Allergy status to sulfonamides
CPT/HCPCS: 99283

== ENCOUNTER 2020-04-26 17:13 | Emergency (ER) | payer MEDICARE ==
[~2020-04-26] VITALS: Ht 157.5 cm; Wt 103.6 kg
[~2020-04-26 17:13] MED LIST changes: +PRAM0.255 PO
--- NOTE | 2020-04-26 17:58 | RAD ---
AP chest. HISTORY: Pain AP view was taken of the chest. There is linear scarring or atelectasis on the left. There are no other confluent infiltrates. The patient's taken a poor inspiration. Heart is upper normal in size. There is a shoulder prosthesis on the right. IMPRESSION: 1. Linear scarring or atelectasis on the left. 2. Poor inspiration 3. No confluent infiltrates. Electronically signed by: Abdelrahman Dugan MD (04/26/2020 5:55 PM) [facility]
--- NOTE | 2020-04-26 18:20 | PHYS DOC ---
Past Medical History Past Medical History: Anemia, Anxiety, Arthritis, Bronchitis, CHF, Depression, DVT Additional Past Medical Histor: lupus,fibromyalgia Past Surgical History: Knee Replacement Additional Past Surgical Histo: left shoulder, carpel tunnel, RT KNEE REPLACEMENT Smoking Status: Never Smoker Alcohol Use: None Drug Use: None General Adult EDM: Chief Complaint: CHEST WALL PAIN HPI: HPI: Patient is a 64 year old female who presents with complaint of right-sided chest wall pain for the last 3 days. Patient reportedly had been reaching to grab something in the backseat of her car and felt something pull. She states that ever since that time she has had pain in the right lower rib region. She describes pain as sharp and stabbing and states that it is worsened with deep breathing and with movement. She denies any fever cough. [] Review of Systems: Review of Systems: Constitutional: Denies fever or chills. [] Respiratory: Denies cough or shortness of breath. [] Cardiovascular: Complains of chest wall pain. [] GI: Denies abdominal pain, nausea, vomiting, bloody stools or diarrhea. [] Neurologic: Denies headache, focal weakness or sensory changes. [] A full 10 point review of systems has been reviewed and is otherwise negative. Heart Score: Risk Factors: Risk Factors: DM, Current or recent (<one month) smoker, HTN, HLP, family history of CAD, obesity. Risk Scores: Score 0 - 3: 2.5% MACE over next 6 weeks - Discharge Home Score 4 - 6: 20.3% MACE over next 6 weeks - Admit for Clinical Observation Score 7 - 10: 72.7% MACE over next 6 weeks - Early Invasive Strategies Allergies: Allergies: Allergies Coded Allergies Type Severity Reaction Last Updated Verified Sulfa (Sulfonamide Antibiotics) Allergy Unknown Anaphylaxis 10/07/14 Yes Physical Exam: PE: Constitutional: Well developed, well nourished, no acute distress, non-toxic appearance. [] HENT: Normocephalic, atraumatic, bilateral external ears normal, oropharynx moist, no oral exudates, nose normal. [] Eyes: PERRLA, EOMI, conjunctiva normal, no discharge. [] Neck: Normal range of motion, no tenderness, supple, no stridor. [] Cardiovascular: Regular rate and rhythm. There is reproducible chest wall tenderness along the right lower anterolateral rib margin that reproduces patient's pain. [] Lungs & Thorax: Bilateral breath sounds clear to auscultation [] Abdomen: Bowel sounds normal, soft, no tenderness. [] Skin: Warm, dry, no erythema, no rash. [] Extremities: No tenderness, no cyanosis, no clubbing, ROM intact, with bilateral lower extremity edema. [] Neurologic: Alert and oriented X 3, no focal deficits noted. [] Current Patient Data: Vital Signs: Vital Signs Date Time Temp Pulse Resp B/P (MAP) Pulse Ox O2 Delivery O2 Flow Rate FiO2 04/26/20 17:20 98.6 57 16 85/46 (59) 95 Room Air 98.6 EKG: EKG: EKG demonstrates normal sinus rhythm with rate of 62. [] Radiology/Procedures: Radiology/Procedures: []ROCEDURE: CHEST AP ONLY AP chest. HISTORY: Pain AP view was taken of the chest. There is linear scarring or atelectasis on the left. There are no other confluent infiltrates. The patient's taken a poor inspiration. Heart is upper normal in size. There is a shoulder prosthesis on the right. IMPRESSION: 1. Linear scarring or atelectasis on the left. 2. Poor inspiration 3. No confluent infiltrates. Electronically signed by: Abdelrahman Dugan MD (04/26/2020 5:55 PM) [facility] Course & Med Decision Making: Course & Med Decision Making Pertinent Labs and Imaging studies reviewed. (See chart for details) [] Dragon Disclaimer: Dragon Disclaimer: This electronic medical record was generated, in whole or in part, using a voice recognition dictation system. Departure Departure Impression: Primary Impression: Costochondritis Additional Impression: Acute kidney injury Disposition: 07 AGAINST MEDICAL ADVICE Condition: IMPROVED Referrals: LEONOR EDWARDS DO (PCP) BOWEN TAYLOR Jr., DO April 26, 2020 18:20
[2020-04-26 19:50] LABS: BASO % 0 % (0-3); EOS # 0.2 x10^3/uL (0.0-0.7); EOS % 2 % (0-3); HEMATOCRIT 36.4 % (36.0-47.0); HEMOGLOBIN 11.7 g/dL (12.0-15.5); LYMPH # 0.6 x10^3/uL (1.0-4.8); LYMPH % 6 % (24-48); MEAN CORPUSCULAR HEMOGLOBIN 28 pg (25-35); MEAN CORPUSCULAR HGB CONC 32 g/dL (31-37); MEAN CORPUSCULAR VOLUME 89 fL (79-100); MONO # 0.7 x10^3/uL (0.0-1.1); MONO % 7 % (0-9); NEUT # 7.8 x10^3/uL (1.8-7.7); NEUT % 85 % (31-73); PLATELET COUNT 119 x10^3/uL (140-400); RED BLOOD COUNT 4.12 x10^6/uL (3.50-5.40); RED CELL DISTRIBUTION WIDTH 15.2 % (11.5-14.5); WHITE BLOOD COUNT 9.2 x10^3/uL (4.0-11.0)
[2020-04-26 19:56] LABS: CALCIUM 9.1 mg/dL (8.5-10.1); CREATININE 3.7 mg/dL (0.6-1.0); GFR 12.3; POTASSIUM 4.3 mmol/L (3.5-5.1)
[2020-04-26 20:02] LABS: ALBUMIN 3.4 g/dL (3.4-5.0); ALBUMIN/GLOBULIN RATIO 1.1 (1.0-1.7); TOTAL BILIRUBIN 0.9 mg/dL (0.2-1.0); TOTAL PROTEIN 6.5 g/dL (6.4-8.2)
[2020-04-26] MEDS ORDERED: IV NORMAL SALINE 1000ML BAG 1,000 ML IV ONE (20:15)
[2020-04-26] MEDS ORDERED: fentaNYL PF VIAL 100 MCG/2 ML VIAL IVP ONE (20:45)
[2020-04-26 21:09] VITALS: BP 103/56
--- NOTE | 2020-04-28 07:25 | EKG ---
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
[2020-05-03] MEDS ORDERED: AMOX1TAB61 PO (12:24)
== END 2020-04-26 21:30 | disposition left against medical advice (07) ==
LOC: ER 17:13
DX: M94.0 Chondrocostal junction syndrome [Tietze] (principal); N17.9 Acute kidney failure, unspecified; Z86.718 Personal history of other venous thrombosis and embolism; M32.9 Systemic lupus erythematosus, unspecified; Z86.79 Personal history of other diseases of the circulatory system; Z88.2 Allergy status to sulfonamides
CPT/HCPCS: 36415; 71045; 80053; 83690; 84484; 85025; 93005; 96374; 99285; J3010; J7030